=== PATIENT | male | born 1980 | race Caucasian/White ===

== ENCOUNTER 2019-07-05 22:43 | Emergency (ER) | payer OTHER ==
[~2019-07-05] VITALS: Ht 162.6 cm; Wt 85.3 kg
[2019-07-05 22:50] VITALS: Ht 162.6 cm; Wt 85.3 kg
[2019-07-05 23:32] LABS: BASOPHIL % 0.3 % (0-2); PLATELET COUNT 301 x10^3mcL (130-400); RED CELL DISTRIBUTION WIDTH 13.2 % (11.5-14.5)
[2019-07-05 23:42] LABS: CALCIUM 8.6 mg/dL (8.5-10.1); CARBON DIOXIDE 31.1 mmol/L (21-32); CHLORIDE SERUM 102 mmol/L (98-107); GFR1 > 60 mL/min; GLUCOSE SERUM 124 mg/dL (74-106); POTASSIUM SERUM 4.1 mmol/L (3.5-5.1); SODIUM SERUM 139 mmol/L (136-145)
[2019-07-05 23:47] LABS: ALBUMIN 3.9 g/dL (3.4-5.0); ALKALINE PHOSPHATASE 67 U/L (46-116); ALT/SGPT 62 U/L (16-63); AST/SGOT 28 U/L (15-37); BILIRUBIN TOTAL 0.3 mg/dL (0.20-1.00); TOTAL PROTEIN, SERUM 7.7 g/dL (6.4-8.2)
[2019-07-06 06:02] VITALS: BP 142/96
== END 2019-07-06 06:02 | disposition home or self-care (01) ==
LOC: ED 22:43
PROVIDERS: Emergency Medicine
DX: N50.812 Left testicular pain (principal); R10.30 Lower abdominal pain, unspecified
CPT/HCPCS: 36415; Q0092; Q9967

== ENCOUNTER 2019-11-11 14:22 | Emergency (ER) | payer OTHER, SELFPAY ==
[~2019-11-11] VITALS: Ht 162.6 cm; Wt 83.9 kg
[2019-11-11 15:14] VITALS: BP 143/95; Ht 162.6 cm; Wt 83.9 kg
== END 2019-11-11 15:55 | disposition home or self-care (01) ==
LOC: ED 14:22
DX: B34.9 Viral infection, unspecified (principal); F17.290 Nicotine dependence, other tobacco product, uncomplicated; Z20.828 Contact with and (suspected) exposure to other viral communicable diseases
CPT/HCPCS: 99406; U0003-CS